=== PATIENT | male | born 1960 | race Caucasian/White ===

== ENCOUNTER → 2016-05-25 | Outpatient (CLI) | payer OTHER ==
[~2016-05-25] MED LIST: AMOXICILLIN PO; AMOXICILLIN875 MG PO; APAP500 MG PO; ASPIRIN PO; ASPIRIN81 M2; BENADRYL25 M3 PO; BRILINTA90 MG; CATAPRES-TTS-10.1 M1; COREG12.5 MG; COREG12.5 MG PO; EFFIENT; FENOFIBRATE145 M1; HUMULIN N100 U/ML; INSULIN; LISINOPRIL; MEDROL DOSEPAK4 MG PO; METFORMIN HCL500 M3 PO; METFORMIN PO; NAPROXEN375 MG PO; NOVOLIN N100 UNIT/1 SL; NOVOLIN N100 UNIT/1 SQ; OXYCONTIN40 MG PO; PEPCID AC20 M2 PO; PRINIVIL5 MG PO; TOPROL XL 50 MG50 MG; ZETIA; ZOLOFT50 MG PO
--- NOTE | ~2016-05-25 | CT2 ---
[facility] A Service of [facility] RADIOLOGY TEXT RESULTS PATIENT: BATSHEVA KEARNEY [facility] 56 UNIT #: [id number] AGE: [address]: Johnnie Monk MD SEX: M ORDER DR: [id number] [facility] [address] [place], [place] [address] [id number] O MR#: [id number] Acc #: [id number] NAME: BATSHEVA KEARNEY. : 1960 SEX: M STUDY DATE/TIME: 05/25/2016 16:00 UNIT: [facility] ROOM: STUDY DESCRIPTION: CT Abd and Pelv W Cont Attending Physician: Johnnie Monk M.D. Referring Physician: Johnnie Monk M.D. Ordering Physician: Johnnie Monk M.D. Primary Care Physician: Laz Rendon M.D. MEDICAL IMAGING REPORT This report is preliminary unless electronic signature is present EXAM CT abdomen and pelvis with contrast INDICATIONS Restaging rectal cancer. Observation for metastatic disease and response to therapy. Diagnosed rectal cancer 01/12/2016. PROCEDURE Contrast-enhanced CT of the abdomen and pelvis. 100 mL of Isovue-370. COMPARISON 02/27/2016 FINDINGS Refer to the separately dictated chest CT for thoracic findings. Abdomen with contrast: The hepatic lesions are slightly smaller than on the previous study. An index lesion in segment 3 of the liver measures 1.9 cm, previously 3.1 cm. A second index lesion subcapsular segment 5 measures up 2.2 cm, previously up to 2.7 cm. No new liver lesions are seen. The spleen and pancreas are unremarkable. Previous cholecystectomy. Tiny nonobstructing calculus in the left kidney. Stable 1.5 cm left adrenal adenoma. Bowel loops nondilated. Moderate colonic stool. Uncomplicated colonic diverticula. No abdominal adenopathy. Pelvis with contrast: There is mild thickening in the distal rectum, measuring up to 9 mm in thickness. This is near circumferential, with mild sparing along the right side of this segment. This is in the region of the patient's rectal tumor as shown on a PET/CT from 01/17/2016. Lymph STS. [facility] A Service of [facility] RADIOLOGY TEXT RESULTS PATIENT: BATSHEVA KEARNEY LOCATION: [facility] : 56 UNIT #: [id number] AGE: [address]: Johnnie Monk MD SEX: M ORDER DR: node in the left mesorectal fat measures 7 mm, previously 10 mm. No new or enlarging pelvic adenopathy. No aggressive appearing bone lesion. IMPRESSION 1. Persistent near circumferential thickening in the distal rectum in the area of patient's known rectal tumor. This is nonspecific and could represent residual tumor or post therapy change. 2. A lymph node in the left mesorectal fat is slightly smaller than on the previous study. 3. Hepatic metastases are slightly smaller than on the prior. 4. No convincing evidence for new metastatic disease in the abdomen or pelvis. Dictated by... Tony Kessler M.D. THIS IS AN ELECTRONICALLY VERIFIED REPORT Tony Kessler M.D. at 05/30/2016 7:09 AM Maria De Jesus TD: 05/26/2016 10:40 JOB #: [id number] MEDICAL IMAGING REPORT COPY
--- NOTE | ~2016-05-25 | CT55 ---
[facility] A Service of [facility] RADIOLOGY TEXT RESULTS PATIENT: BATS[facility]VA KEARNEY [id number] 56 UNIT #: [id number] AGE: [address]: Johnnie Monk MD SEX: M ORDER DR: [id number] [facility] [address] [place], [place] [address] [id number] O MR#: [id number] Acc #: [id number] NAME: BATSHEVA KEARNEY. : 1960 SEX: M STUDY DATE/TIME: 05/25/2016 16:00 UNIT: [facility] ROOM: STUDY DESCRIPTION: CT Chest W Con Attending Physician: Johnnie Monk M.D. Referring Physician: Johnnie Monk M.D. Ordering Physician: Johnnie Monk M.D. Primary Care Physician: Laz Rendon M.D. MEDICAL IMAGING REPORT This report is preliminary unless electronic signature is present EXAM CT chest with contrast. INDICATION Restaging colorectal cancer. Colorectal cancer diagnosed 01/12/2016. Observation for response to therapy and metastatic disease. Patient reports hemoptysis 3 days ago. PROCEDURE Contrast-enhanced CT of the chest. This CT exam was performed with one or more of the following radiation dose reduction techniques: automatic exposure control, adjustment of mA and/or kV according to patient size, and iterative reconstruction. COMPARISON STUDIES PET/CT from 01/17/2016. FINDINGS Paraseptal emphysema. No suspicious pulmonary nodule. No adenopathy. Coronary artery calcification. No aggressive appearing bone lesions. IMPRESSION No convincing evidence for metastatic disease to the chest. Dictated by... Tony Kessler M.D. THIS IS AN ELECTRONICALLY VERIFIED REPORT Tony Kessler M.D. at 05/30/2016 7:09 AM EED/tmw [facility] A Service of [facility] RADIOLOGY TEXT RESULTS PATIENT: BATSHEVA KEARNEY [id number] 56 UNIT #: [id number] AGE: [address]: Johnnie Monk MD SEX: M ORDER DR: TD: 05/26/2016 10:32 JOB #: [id number] MEDICAL IMAGING REPORT COPY
== END | disposition home or self-care (01) ==
LOC: CCAT 15:09
DX: C18.8 Malignant neoplasm of overlapping sites of colon (principal); C78.7 Secondary malignant neoplasm of liver and intrahepatic bile duct
CPT/HCPCS: 71260; 74177; Q9967

== ENCOUNTER → 2016-07-11 | Outpatient (CLI) | payer OTHER ==
--- NOTE | ~2016-07-11 | CT2 ---
[facility] A Service of [facility] & [facility] RADIOLOGY TEXT RESULTS PATIENT: BATSHEVA KEARNEY [facility] 56 UNIT #: [id number] AGE: [address]: Johnnie Monk MD SEX: M ORDER DR: [id number] [facility] [address] [place], [place] [address] [id number] O MR#: [id number] Acc #: [id number] NAME: BATSHEVA KEARNEY. : 1960 SEX: M STUDY DATE/TIME: 07/11/2016 9:22 UNIT: [facility] ROOM: STUDY DESCRIPTION: CT Abd and Pelv W Cont Attending Physician: Johnnie Monk M.D. Ordering Physician: Johnnie Monk M.D. Primary Care Physician: Laz Rendon M.D. MEDICAL IMAGING REPORT This report is preliminary unless electronic signature is present EXAM CT abdomen and pelvis INDICATION Rectal cancer. Observation for metastatic disease. Restaging. TECHNIQUE CT abdomen and pelvis with 100 mL Isovue-370 IV contrast. Coronal and sagittal reconstructions were obtained. This CT exam was performed with one or more of the following radiation dose reduction techniques: automatic exposure control, adjustment of mA and/or kV according to patient size, and iterative reconstruction. COMPARISON CT abdomen and pelvis dated 05/25/2016. FINDINGS ABDOMEN: Low attenuation lesions throughout the liver are unchanged from the prior study. There is an index lesion in the left hepatic lobe that measures 2.0 cm compared to 1.9 cm previously. The lesion in the anterior right hepatic lobe measures 1.4 cm compared to 1.5 cm previously. A third index lesion in the inferior right hepatic lobe measures 1.8 cm compared to 2.2 cm previously. Non index lesions are also unchanged in size. The gallbladder is surgically absent. Pancreas, spleen, adrenal glands, and kidneys are within normal limits. There is a nonobstructing left renal calculus measuring 2.0-3.0 mm. The bowel is not dilated. The abdominal aorta is normal in caliber. PELVIS: There is some circumferential thickening of the [id number] rectum. This measures up to 0.9 cm in thickness, unchanged. Small lymph STS. [facility] A Service of [facility] & [facility] RADIOLOGY TEXT RESULTS PATIENT: BATSHEVA KEARNEY LOCATION: [facility] : 56 UNIT #: [id number] AGE: [address]: Johnnie Monk MD SEX: M ORDER DR: node in the mesorectal fat measures 7.0 mm, unchanged. Mild fat stranding in the perirectal fat is unchanged. No enlarged pelvic or inguinal lymph nodes. Bladder is unremarkable. IMPRESSION 1. No evidence of disease progression. 2. Circumferential thickening of the rectum with associated perirectal stranding and small perirectal lymph nodes are all unchanged from the prior study. 3. Hepatic metastases are unchanged in size from the prior exam. Dictated by... Guru Smith M.D. THIS IS AN ELECTRONICALLY VERIFIED REPORT Guru Smith M.D. at 07/11/2016 1:09 PM EFRAIN/leeann TD: 07/11/2016 12:41 JOB #: [id number] MEDICAL IMAGING REPORT Page 1 of 1 COPY
--- NOTE | ~2016-07-11 | CT55 ---
[facility] A Service of [facility] RADIOLOGY TEXT RESULTS PATIENT: BATSHEVA KEARNEY LOCATION: [facility] : 56 UNIT #: [id number] AGE: [address]: Johnnie Monk MD SEX: M ORDER DR: [id number] [facility] [address] [place], [place] [address] [id number] O MR#: [id number] Acc #: [id number] NAME: BATSHEVA KEARNEY. : 1960 SEX: M STUDY DATE/TIME: 07/11/2016 9:22 UNIT: [facility] ROOM: STUDY DESCRIPTION: CT Chest W Con Attending Physician: Johnnie Monk M.D. Ordering Physician: Johnnie Monk M.D. Primary Care Physician: Laz Rendon M.D. MEDICAL IMAGING REPORT This report is preliminary unless electronic signature is present EXAM CT chest 07/11/2016 HISTORY Colon cancer. Malignant neoplasm at old operative sites in the colon. Restaging. Observation for metastatic disease. Rectal cancer. TECHNIQUE CT of the chest utilizing 100 mL Isovue-370 IV contrast. Coronal and sagittal reconstructions were obtained. This CT exam was performed with one or more of the following radiation dose reduction techniques: automatic exposure control, adjustment of mA and/or kV according to patient size, and iterative reconstruction. COMPARISON Concurrent CT abdomen 07/11/[address] chest, abdomen, and pelvis dated 05/25/2016. FINDINGS No pathologically enlarged mediastinal, hilar, or axillary lymph nodes. No pericardial or pleural effusion. Thoracic aorta is normal in size. There is paraseptal and centrilobular emphysema. No focal consolidation. Central airways are patent. IMPRESSION No evidence metastatic disease in the chest. Dictated by... Guru Smith M.D. THIS IS AN ELECTRONICALLY VERIFIED REPORT [facility] A Service of [facility] & [facility] RADIOLOGY TEXT RESULTS PATIENT: BATSHEVA KEARNEY LOCATION: [facility] : 56 UNIT #: [id number] AGE: [address]: Johnnie Monk MD SEX: M ORDER DR: Guru Smith M.D. at 07/11/2016 1:09 PM EFRAIN/sagar TD: 07/11/2016 12:43 JOB #: [id number] MEDICAL IMAGING REPORT Page 1 of 1 COPY
[2016-07-11 09:45] LABS: POC - CREATININE 0.88 mg/dL (0.64-1.27); POC - GFR >60.0 mL/min (>60)
== END | disposition home or self-care (01) ==
LOC: CCAT 08:15
PROVIDERS: Internal Medicine Hematology
DX: C18.8 Malignant neoplasm of overlapping sites of colon (principal); C78.7 Secondary malignant neoplasm of liver and intrahepatic bile duct
CPT/HCPCS: 71260; 74177; 82565; Q9967